=== PATIENT | female | born 2000 | race Hispanic/Latino ===

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

== ENCOUNTER 2022-05-01 08:34 | Emergency (ER) | payer OTHER ==
--- OUTSIDE RECORDS SUMMARY | 2022-05-01 08:39 | XMS REPORT | Continuity of Care Document ---
:[address] [facility] t Address [address] [place] [address] Care Team Providers Name Role Phone Libby Fulton Primary Care Physician Libby Fulton Attending Clinician Unavailable NEAL WARE Attending Clinician Unavailable NEAL WARE Attending Clinician Unavailable BIRD SHELTON Attending Clinician Unavailable Neal Ware MD Attending Clinician STELLA PEPE Attending Clinician Unavailable STELLA PEPE Attending Clinician Unavailable Rafael Rojas MD Attending Clinician Antonino Grubbs MD Attending Clinician RAFAEL ROJAS Attending Clinician Unavailable Doctor Unassigned, Dennard Attending Clinician Unavailable ALISON KEMP Attending Clinician Unavailable Clemente CENTENO, Alison Bey Attending Clinician JM MCGEE Attending Clinician Unavailable Garrett Sidhu Attending Clinician [phone] CAT DODD Attending Clinician Unavailable Pcp-Lab Attending Clinician Unavailable Bebe Gr MD Attending Clinician Greg CENTENO, Real Attending Clinician South Ho MD Attending Clinician Nuha Gil RN Attending Clinician Unavailable Monica JONES, Luann Hare Attending Clinician CODIE WALDROP Attending Clinician Unavailable Zhao WADSWORTH, Reji Flanagan Attending Clinician Codie Waldrop MD Attending Clinician Anesthesiology Attending Clinician Unavailable Nicola CENTENO, Ki Attending Clinician [phone] Rui Colon MD, Briana Attending Clinician [phone] Anton JONES, Liza Myers Attending Clinician Unavailable Greg CENTENO, Real Admitting Clinician CODIE WALDROP Admitting Clinician Unavailable Codie Waldrop MD Admitting Clinician Payers Payer Name Policy Type Policy Number Effective Date Expiration Date Lucia peralta [facility] [id number] 2016 00:00:00 [employer] [id number] 2022 BEHAVIORAL 00:00:00 SOLUTIONS Problems Condition Condition Condition Status Onset Resolution Last Treating Co mments Source Name Details Category Date Date Treatment Clinician Date Agitation Agitation Disease Active Uni vers 4-30 ity of 00:00: [address] Seizures Seizures Disease Active Unive rs 5-03 ity of 00:00: [address] Autistic Autistic Disease Active 2012-03 Unive rs spectrum spectrum 1-02 ity of disorder disorder 00:00: [address] Urinary Urinary Problem Active Common incontinen incontinen Sp estrella ce ce - [facility] Other Other Problem Active Common specified specified Spir it bacterial bacterial - CH I agents as agents as St the cause the cause [facility] Medical diseases diseases Center classified classified elsewhere elsewhere Acute Acute Problem Active Common sinusitis, sinusitis, Sp estrella unspecifie unspecifie - [facility]I d d [facility] Foreign Foreign Problem Active Common body in body in Spirit stomach, stomach, - [facility] subsequent subsequent [facility] encounter encounter [facility] Change in Change in Problem Active Com mon bowel bowel Spirit movement movement - [facility] Depression Depression Problem Active C ommon , , Spirit unspecifie unspecifie - [facility]I d d [facility] depression depression Moira kes type type [facility] Menstrual Menstrual Problem Active Com mon abnormalit abnormalit Sp estrella y y - [facility] Combative Combative Diagnosis Active C ommon behavior behavior [facility] Hypersomni Hypersomni Problem Active C ommon a a [facility] Pica Pica Problem Active Common [facility] Autism Autism Diagnosis Active Common [facility] GERD GERD Problem Active Common (gastroeso (gastroeso Sp estrella phageal phageal - [facility] reflux reflux St disease) disease) [facility] Lactose Lactose Problem Active Common intoleranc intoleranc Sp estrella e e [facility] Allergic Allergic Problem Active Commo n rhinitis, rhinitis, Spir it seasonal seasonal - [facility] Diarrhea, Diarrhea, Problem Active Com mon unspecifie unspecifie Sp estrella d type d type - [facility] Counseling Counseling Diagnosis Active Common and and Spirit coordinati coordinati - [facility] on of care on of care [facility] Seizure Seizure Diagnosis Active Commo n [facility] Depo-Prove Depo-Prove Problem Active C ommon ra ra Spirit contracept contracept - [facility] marcel status marcel status [facility] Follow-up Follow-up Diagnosis Active C ommon exam exam [facility] Allergies, Adverse Reactions, Alerts Allergy Allergy Status Severity Reaction(s) Onset Inactive Treating Comm ents Source Name Type Date Date Clinician NO KNOWN Drug Active Univers ALLERGIE Class ity of S [facility] Social History Social Habit Start Date Stop Date Quantity Comments Source Exposure to 2022-04-14 2022-04-24 Not sure [facility] SARS-CoV-2 00:00:00 08:02:00 [facility] (event) Branch Alcohol intake 2022-04-24 2022-04-24 [facility] 00:00:00 00:00:00 [facility] Tobacco use and 2012-11-22 2012-11-22 Smokeless tobacco Un iversity of exposure 00:00:00 00:00:00 non-user [facility] Sex Assigned At [birth year] Universit y of 00:00:00 00:00:00 [facility] Smoking Status Start Date Stop Date Source Never smoked tobacco [facility] Medications Ordered Filled Start Stop Current Ordering Indication Dosage Frequency Signature Comments Components Source Medication Medication Date Date Medication? Clinician (SIG) Name Name OLANZapine 3-0 Yes [id number] 5mg Take 0.5 Univers 10 mg 2-21 tablets by ity of tablet 00:00: mouth [place] 00 every Medical morning Branch and evening. OLANZapine 2023-0 Yes [id number] 5mg Take 1 U nivers (ZYPREXA) 5 2-20 tablet by ity of mg tablet 00:[place]: [place] the Medical morning Branch and 1 tablet in the evening. OLANZapine 2023-0 Yes [id number] 5mg Take 1 U nivers (ZYPREXA) 5 2-20 tablet by ity of mg tablet 00:00: [place] the Medical morning Branch and 1 tablet in the evening. OLANZapine 2023-0 Yes [id number] 5mg Take 1 U nivers (ZYPREXA) 5 2-20 tablet by ity of mg tablet 00:00: [place] the Medical morning Branch and 1 tablet in the evening. OLANZapine 3-0 2023- No [id number] 5mg Take 1 Univers (ZYPREXA) 5 2-20 02-21 tablet by it y of mg tablet 00:00: 00:00 mouth in [place] :00 the Medical morning Branch and 1 tablet in the evening. CLONAZEPAM 2023-0 Yes [id number] .5mg TAKE 1 U nivers 0.5 mg 2-17 TABLET BY ity of tablet 00:00: MOUTH IN 00 THE Medical MORNING Branch AND 1 TABLET AT NOON AND 1 TABLET IN THE EVENING. CLONAZEPAM 2023-0 Yes [id number] .5mg TAKE 1 U nivers 0.5 mg 2-17 TABLET BY ity of tablet 00:00: MOUTH IN 00 THE Medical MORNING Branch AND 1 TABLET AT NOON AND 1 TABLET IN THE EVENING. CLONAZEPAM 2023-0 Yes [id number] .5mg TAKE 1 U nivers 0.5 mg 2-17 TABLET BY ity of tablet 00:00: MOUTH IN [place] 00 THE Medical MORNING Branch AND 1 TABLET AT NOON AND 1 TABLET IN THE EVENING. CLONAZEPAM 2023-0 Yes [id number] .5mg TAKE 1 U nivers 0.5 mg 2-17 TABLET BY ity of tablet 00:00: MOUTH IN [place] 00 THE Medical MORNING Branch AND 1 TABLET AT NOON AND 1 TABLET IN THE EVENING. CLONAZEPAM 2023-0 Yes [id number] .5mg TAKE 1 U nivers 0.5 mg 2-17 TABLET BY ity of tablet 00:00: MOUTH IN [place] 00 THE Medical MORNING Branch AND 1 TABLET AT NOON AND 1 TABLET IN THE EVENING. OXcarbazepi 2023-0 Yes [id number] 600mg Take 1 Univers ne 600 mg 2-15 tablet by ity o f tablet 00:00: mouth in [place] 00 the Medical morning Branch and 1 tablet in the evening. OXcarbazepi 2023-0 Yes [id number] 600mg Take 1 Univers ne 600 mg 2-15 tablet by ity o f tablet 00:00: mouth in [place] 00 the Medical morning Branch and 1 tablet in the evening. OXcarbazepi 2023-0 Yes [id number] 600mg Take 1 Univers ne 600 mg 2-15 tablet by ity o f tablet 00:00: mouth in [place] [address] the Medical morning Branch and 1 tablet in the evening. OXcarbazepi 2023-0 Yes [id number] 600mg Take 1 Univers ne 600 mg 2-15 tablet by ity o f tablet 00:00: mouth in [place] [address] the Medical morning Branch and 1 tablet in the evening. OXcarbazepi 2023-0 Yes [id number] 600mg Take 1 Univers ne 600 mg 2-15 tablet by ity o f tablet 00:00: mouth in [place] [address] the Medical morning Branch and 1 tablet in the evening. risperiDONE 2023-0 Yes [id number] 1mg Take 0.5 Univers 2 mg tablet 1-18 tablets by it y of 00:00: mouth in [place] [address] the Medical morning Branch and 0.5 tablets in the evening. risperiDONE 2023-0 Yes [id number] 1mg Take 0.5 Univers 2 mg tablet 1-18 tablets by it y of 00:00: mouth in [place] [address] the Medical morning Branch and 0.5 tablets in the evening. risperiDONE 2023-0 Yes [id number] 1mg Take 0.5 Univers 2 mg tablet 1-18 tablets by it y of 00:00: mouth in [place] [address] the Medical morning Branch and 0.5 tablets in the evening. risperiDONE 2023-0 Yes [id number] 1mg Take 0.5 Univers 2 mg tablet 1-18 tablets by it y of 00:00: mouth in [place] [address] the Medical morning Branch and 0.5 tablets in the evening. risperiDONE 2023-0 Yes [id number] 1mg Take 0.5 Univers 2 mg tablet 1-18 tablets by it y of 00:00: mouth in [place] 00 the Medical morning Branch and 0.5 tablets in the evening. risperiDONE 2022-0 Yes [id number] 1mg Take 0.5 Univers 2 mg tablet 1-18 tablets by it y of 00:00: mouth in [place] 00 the Medical morning Branch and 0.5 tablets in the evening. risperiDONE 2022-0 3- No [id number] 1mg Take 0.5 Univers 2 mg tablet 1-18 02-20 tablets by i ty of 00:00: 00:00 mouth in [place] 00 :00 the Medical morning Branch and 0.5 tablets in the evening. risperiDONE 2022-0 3- No [id number] 1mg Take 0.5 Univers 2 mg tablet 1-18 02-20 tablets by i ty of 00:00: 00:00 mouth in [place] 00 :00 the Medical morning Branch and 0.5 tablets in the evening. risperiDONE 2022-0 3- No [id number] 1mg Take 0.5 Univers 2 mg tablet 1-18 02-20 tablets by i ty of 00:00: 00:00 mouth in [place] 00 :00 the Medical morning Branch and 0.5 tablets in the evening. risperiDONE 2022-0 2022- No [id number] 1mg Take 0.5 Univers 2 mg tablet 1-18 02-20 tablets by i ty of 00:00: 00:00 mouth in [place] 00 :00 the Medical morning Branch and 0.5 tablets in the evening. CETIRIZINE 2021-03 Yes Take by Uni vers HCL (ZYRTEC 2-15 mouth. ity of ORAL) 08:11: [address] CETIRIZINE 2021-03 Yes Take by Univ ers HCL (ZYRTEC 2-15 mouth. ity of ORAL) 08:: [address] CETIRIZINE 2021-03 Yes Take by Univ ers HCL (ZYRTEC 2-15 mouth. ity of ORAL) 08:: [address] CETIRIZINE 2021-03 Yes Take by Univ ers HCL (ZYRTEC 2-15 mouth. ity of ORAL) 08:11: [address] CETIRIZINE 2021-03 Yes Take by Univ ers HCL (ZYRTEC 2-15 mouth. ity of ORAL) 08:11: [address] CETIRIZINE 2021-03 Yes Take by Univ ers HCL (ZYRTEC 2-15 mouth. ity of ORAL) 08:11: [address] CETIRIZINE 2021-03 Yes Take by Univ ers HCL (ZYRTEC 2-15 mouth. ity of ORAL) 08:11: [address] CETIRIZINE 2021-03 Yes Take by Univ ers HCL (ZYRTEC 2-15 mouth. ity of ORAL) 08:11: [address] CETIRIZINE 2021-03 Yes Take by Univ ers HCL (ZYRTEC 2-15 mouth. ity of ORAL) 08:11: [address] CETIRIZINE 2021-03 Yes Take by Univ ers HCL (ZYRTEC 2-15 mouth. ity of ORAL) 08:11: [address] CETIRIZINE 2021-03 Yes Take by Univ ers HCL (ZYRTEC 2-15 mouth. ity of ORAL) 08:11: [address] CETIRIZINE 2021-03 Yes Take by Univ ers HCL (ZYRTEC 2-15 mouth. ity of ORAL) 08:11: [address] CETIRIZINE 2021-03 Yes Take by Univ ers HCL (ZYRTEC 2-15 mouth. ity of ORAL) 08:11: [address] CETIRIZINE 2021-03 Yes Take by Univ ers HCL (ZYRTEC 2-15 mouth. ity of ORAL) 08:11: [address] CETIRIZINE 2021-03 Yes Take by Univ ers HCL (ZYRTEC 2-15 mouth. ity of ORAL) 08:11: [address] CETIRIZINE 2021-03 Yes Take by Univ ers HCL (ZYRTEC 2-15 mouth. ity of ORAL) 08:11: [address] risperiDONE 2021-03 Yes [id number] 2mg Take 1 Univers 2 mg tablet 1-17 tablet by ity of 00:00: mouth in [place] [address] the Medical morning Branch and 1 tablet in the evening. ARIPiprazol 2021-03 Yes [id number] 5mg Take 1 Univers e 5 mg 1-17 tablet by ity of tablet 00:00: mouth [place] 00 every Medical morning. Branch risperiDONE 2021-03 Yes [id number] 2mg Take 1 Univers 2 mg tablet 1-17 tablet by ity of 00:00: mouth in [place] 00 the Medical morning Branch and 1 tablet in the evening. ARIPiprazol 2021-03 Yes [id number] 5mg Take 1 Univers e 5 mg 1-17 tablet by ity of tablet 00:00: mouth [place] 00 every Medical morning. Branch risperiDONE 2021-03 Yes [id number] 2mg Take 1 Univers 2 mg tablet 1-17 tablet by ity of 00:00: mouth in [place] 00 the Medical morning Branch and 1 tablet in the evening. ARIPiprazol 2021-03 Yes [id number] 5mg Take 1 Univers e 5 mg 1-17 tablet by ity of tablet 00:00: mouth [place] 00 every Medical morning. Branch risperiDONE 2021-03 Yes [id number] 2mg Take 1 Univers 2 mg tablet 1-17 tablet by ity of 00:00: mouth in [place] 00 the Medical morning Branch and 1 tablet in the evening. ARIPiprazol 2021-03 Yes [id number] 5mg Take 1 Univers e 5 mg 1-17 tablet by ity of tablet 00:00: mouth [place] 00 every Medical morning. Branch risperiDONE 2021-03 Yes [id number] 2mg Take 1 Univers 2 mg tablet 1-17 tablet by ity of 00:00: mouth in [place] 00 the Medical morning Branch and 1 tablet in the evening. ARIPiprazol 2021-03 Yes [id number] 5mg Take 1 Univers e 5 mg 1-17 tablet by ity of tablet 00:00: mouth [place] 00 every Medical morning. Branch risperiDONE 2021-03 Yes [id number] 2mg Take 1 Univers 2 mg tablet 1-17 tablet by ity of 00:00: mouth in [place] 00 the Medical morning Branch and 1 tablet in the evening. ARIPiprazol 2021-03 Yes [id number] 5mg Take 1 Univers e 5 mg 1-17 tablet by ity of tablet 00:00: mouth [place] 00 every Medical morning. Branch risperiDONE 2021-03 Yes [id number] 2mg Take 1 Univers 2 mg tablet 1-17 tablet by ity of 00:00: mouth in [place] 00 the Medical morning Branch and 1 tablet in the evening. ARIPiprazol 2021-03 Yes [id number] 5mg Take 1 Univers e 5 mg 1-17 tablet by ity of tablet 00:00: mouth [place] 00 every Medical morning. [place] ARIPiprazol 2021-03 Yes [id number] 5mg Take 1 Univers e 5 mg 1-17 tablet by ity of tablet 00:00: mouth [place] 00 every Medical morning. [place] ARIPiprazol 2021-03 Yes [id number] 5mg Take 1 Univers e 5 mg 1-17 tablet by ity of tablet 00:00: mouth [place] 00 every Medical morning. [place] ARIPiprazol 2021-03 Yes [id number] 5mg Take 1 Univers e 5 mg 1-17 tablet by ity of tablet 00:00: mouth [place] 00 every Medical morning. [place] ARIPiprazol 2021-03 Yes [id number] 5mg Take 1 Univers e 5 mg 1-17 tablet by ity of tablet 00:00: mouth [place] 00 every Medical morning. [place] ARIPiprazol 2021-03 Yes [id number] 5mg Take 1 Univers e 5 mg 1-17 tablet by ity of tablet 00:00: mouth [place] 00 every Medical morning. [place] ARIPiprazol 2021-03 Yes [id number] 5mg Take 1 Univers e 5 mg 1-17 tablet by ity of tablet 00:00: mouth [place] 00 every Medical morning. [place] ARIPiprazol 2021-03 Yes [id number] 5mg Take 1 Univers e 5 mg 1-17 tablet by ity of tablet 00:00: mouth [place] 00 every Medical morning. [place] ARIPiprazol 2021-03 Yes [id number] 5mg Take 1 Univers e 5 mg 1-17 tablet by ity of tablet 00:00: mouth [place] 00 every Medical morning. [place] ARIPiprazol 2021-03 Yes [id number] 5mg Take 1 Univers e 5 mg 1-17 tablet by ity of tablet 00:00: mouth [place] 00 every Medical morning. [place] ARIPiprazol 2021-03 Yes [id number] 5mg Take 1 Univers e 5 mg 1-17 tablet by ity of tablet 00:00: mouth [place] 00 every Medical morning. Fisher risperiDONE 2021-03- No [id number] 2mg Take 1 Univers 2 mg tablet 1-17 01-18 tablet by it y of 00:00: 00:00 mouth in [place] 00 :00 the Medical morning Branch and 1 tablet in the evening. MONTELUKAST 2022-0 2022- No Take by Un luis SODIUM 7-18 07-18 mouth. ity of (SINGULAIR 08:33: 00:00 [place] ORAL) 08 :00 Medical Branch OXcarbazepi 2022-0 Yes [id number] 600mg Take 1 Univers ne 600 mg 7-18 tablet by ity o f tablet 00:00: mouth in [place] 00 the Medical morning Branch and 1 tablet in the evening. clonazePAM 2022-0 Yes [id number] .5mg Take 1 U nivers 0.5 mg 7-18 tablet by ity of tablet 00:00: mouth in [place] 00 the Medical morning Branch and 1 tablet at noon and 1 tablet in the evening. OXcarbazepi 2022-0 Yes [id number] 600mg Take 1 Univers ne 600 mg 7-18 tablet by ity o f tablet 00:00: mouth in [place] 00 the Medical morning Branch and 1 tablet in the evening. clonazePAM 2022-0 Yes [id number] .5mg Take 1 U nivers 0.5 mg 7-18 tablet by ity of tablet 00:00: mouth in [place] [address] the Medical morning Branch and 1 tablet at noon and 1 tablet in the evening. OXcarbazepi 2022-0 Yes [id number] 600mg Take 1 Univers ne 600 mg 7-18 tablet by ity o f tablet 00:00: mouth in [place] [address] the Medical morning Branch and 1 tablet in the evening. clonazePAM 2022-0 Yes [id number] .5mg Take 1 U nivers 0.5 mg 7-18 tablet by ity of tablet 00:00: mouth in [place] [address] the Medical morning Branch and 1 tablet at noon and 1 tablet in the evening. OXcarbazepi 2022-0 Yes [id number] 600mg Take 1 Univers ne 600 mg 7-18 tablet by ity o f tablet 00:00: mouth in [place] 00 the Medical morning Branch and 1 tablet in the evening. clonazePAM 2022-0 Yes [id number] .5mg Take 1 U nivers 0.5 mg 7-18 tablet by ity of tablet 00:00: mouth in [place] [address] the Medical morning Branch and 1 tablet at noon and 1 tablet in the evening. OXcarbazepi 2022-0 Yes [id number] 600mg Take 1 Univers ne 600 mg 7-18 tablet by ity o f tablet 00:00: mouth in [place] [address] the Medical morning Branch and 1 tablet in the evening. clonazePAM 2022-0 Yes [id number] .5mg Take 1 U nivers 0.5 mg 7-18 tablet by ity of tablet 00:00: mouth in [place] 00 the Medical morning Branch and 1 tablet at noon and 1 tablet in the evening. OXcarbazepi 2022-0 Yes [id number] 600mg Take 1 Univers ne 600 mg 7-18 tablet by ity o f tablet 00:00: mouth in [place] [address] the Medical morning Branch and 1 tablet in the evening. clonazePAM 2022-0 Yes [id number] .5mg Take 1 U nivers 0.5 mg 7-18 tablet by ity of tablet 00:00: mouth in [place] [address] the Medical morning Branch and 1 tablet at noon and 1 tablet in the evening. OXcarbazepi 2022-0 Yes [id number] 600mg Take 1 Univers ne 600 mg 7-18 tablet by ity o f tablet 00:00: mouth in [place] [address] the [facility] morning Branch and 1 tablet in the evening. clonazePAM 2022-0 Yes [id number] .5mg Take 1 U nivers 0.5 mg 7-18 tablet by ity of tablet 00:00: mouth in [place] [address] the Medical morning Fisher and 1 tablet at noon and 1 tablet in the evening. OXcarbazepi 2022-0 Yes [id number] 600mg Take 1 Univers ne 600 mg 7-18 tablet by ity o f tablet 00:00: mouth in [place] [address] the Medical morning Branch and 1 tablet in the evening. clonazePAM 2022-0 Yes [id number] .5mg Take 1 U nivers 0.5 mg 7-18 tablet by ity of tablet 00:00: mouth in [place] [address] the Medical morning Branch and 1 tablet at noon and 1 tablet in the evening. OXcarbazepi 2022-0 Yes [id number] 600mg Take 1 Univers ne 600 mg 7-18 tablet by ity o f tablet 00:00: mouth in [place] [address] the [facility] morning Fisher and 1 tablet in the evening. clonazePAM 2022-0 Yes [id number] .5mg Take 1 U nivers 0.5 mg 7-18 tablet by ity of tablet 00:00: mouth in [place] [address] the Medical morning Fisher and 1 tablet at noon and 1 tablet in the evening. OXcarbazepi 2022-0 Yes [id number] 600mg Take 1 Univers ne 600 mg 7-18 tablet by ity o f tablet 00:00: mouth in [place] 00 the Medical morning Branch and 1 tablet in the evening. clonazePAM 2022-0 Yes [id number] .5mg Take 1 U nivers 0.5 mg 7-18 tablet by ity of tablet 00:00: mouth in [place] 00 the Medical morning Branch and 1 tablet at noon and 1 tablet in the evening. OXcarbazepi 2022-0 Yes [id number] 600mg Take 1 Univers ne 600 mg 7-18 tablet by ity o f tablet 00:00: mouth in [place] 00 the Medical morning Branch and 1 tablet in the evening. clonazePAM 2022-0 Yes [id number] .5mg Take 1 U nivers 0.5 mg 7-18 tablet by ity of tablet 00:00: mouth in [place] [address] the Medical morning Branch and 1 tablet at noon and 1 tablet in the evening. OXcarbazepi 2022-0 Yes [id number] 600mg Take 1 Univers ne 600 mg 7-18 tablet by ity o f tablet 00:00: mouth in [place] 00 the Medical morning Branch and 1 tablet in the evening. clonazePAM 2022-0 Yes [id number] .5mg Take 1 U nivers 0.5 mg 7-18 tablet by ity of tablet 00:00: mouth in [place] 00 the Medical morning Fisher and 1 tablet at noon and 1 tablet in the evening. OXcarbazepi 2022-0 Yes [id number] 600mg Take 1 Univers ne 600 mg 7-18 tablet by ity o f tablet 00:00: mouth in [place] 00 the Medical morning Branch and 1 tablet in the evening. clonazePAM 2022-0 Yes [id number] .5mg Take 1 U nivers 0.5 mg 7-18 tablet by ity of tablet 00:00: mouth in [place] 00 the Medical morning Branch and 1 tablet at noon and 1 tablet in the evening. clonazePAM 2022-0 2023- No [id number] .5mg Take 1 Univers 0.5 mg 7-18 02-17 tablet by ity of tablet 00:00: 00:00 mouth in [place] 00 :00 the Medical morning Branch and 1 tablet at noon and 1 tablet in the evening. clonazePAM 2022-0 2023- No [id number] .5mg Take 1 Univers 0.5 mg 7-18 02-17 tablet by ity of tablet 00:00: 00:00 mouth in [place] 00 :00 the Medical morning Branch and 1 tablet at noon and 1 tablet in the evening. clonazePAM 2022-0 3- No [id number] .5mg Take 1 Univers 0.5 mg 7-18 02-17 tablet by ity of tablet 00:00: 00:00 mouth in [place] 00 :00 the Medical morning Branch and 1 tablet at noon and 1 tablet in the evening. clonazePAM 2022-0 3- No [id number] .5mg Take 1 Univers 0.5 mg 7-18 02-17 tablet by ity of tablet 00:00: 00:00 mouth in [place] 00 :00 the Medical morning Branch and 1 tablet at noon and 1 tablet in the evening. clonazePAM 2-0 3- No [id number] .5mg Take 1 Univers 0.5 mg 7-18 02-17 tablet by ity of tablet 00:00: 00:00 mouth in [place] 00 :00 the [facility] morning Branch and 1 tablet at noon and 1 tablet in the evening. clonazePAM 2021-0 3- No [id number] .5mg Take 1 Univers 0.5 mg 7-18 02-17 tablet by ity of tablet 00:00: 00:00 mouth in [place] 00 :00 the [facility] morning Branch and 1 tablet at noon and 1 tablet in the evening. clonazePAM 2-0 3- No [id number] .5mg Take 1 Univers 0.5 mg 7-18 02-17 tablet by ity of tablet 00:00: 00:00 mouth in [place] 00 :00 the [facility] morning Fisher and 1 tablet at noon and 1 tablet in the evening. clonazePAM 2-0 3- No [id number] .5mg Take 1 Univers 0.5 mg 7-18 02-17 tablet by ity of tablet 00:00: 00:00 mouth in [place] 00 :00 the Medical morning Branch and 1 tablet at noon and 1 tablet in the evening. OXcarbazepi 2022-0 3- No [id number] 600mg Take 1 Univers ne 600 mg 7-18 02-15 tablet by ity of tablet 00:00: 00:00 mouth in [place] 00 :00 the [facility] morning Branch and 1 tablet in the evening. OXcarbazepi 2022-2022- No [id number] 600mg Take 1 Univers ne 600 mg 7-18 02-15 tablet by ity of tablet 00:00: 00:00 mouth in [place] 00 :00 the Medical morning Branch and 1 tablet in the evening. OXcarbazepi 2021-2022- No [id number] 600mg Take 1 Univers ne 600 mg 7-18 02-15 tablet by ity of tablet 00:00: 00:00 mouth in [place] 00 :00 the Medical morning Branch and 1 tablet in the evening. OXcarbazepi 2022- No [id number] 600mg Take 1 Univers ne 600 mg 7-18 02-15 tablet by ity of tablet 00:00: 00:00 mouth in [place] 00 :00 the Medical morning Branch and 1 tablet in the evening. OXcarbazepi 2022- No [id number] 600mg Take 1 Univers ne 600 mg 7-18 -15 tablet by ity of tablet 00:00: 00:00 mouth in [place] 00 :00 the Medical morning Branch and 1 tablet in the evening. OXcarbazepi 2022- No [id number] 600mg Take 1 Univers ne 600 mg 7-18 -15 tablet by ity of tablet 00:00: 00:00 mouth in [place] 00 :00 the Medical morning Branch and 1 tablet in the evening. OXcarbazepi 2022- No [id number] 600mg Take 1 Univers ne 600 mg 7-18 02-15 tablet by ity of tablet 00:00: 00:00 mouth in [place] 00 :00 the Medical morning Branch and 1 tablet in the evening. clindamycin 2021-0 Yes TAKE 1 Univ ers 300 mg 6-14 CAPSULE BY ity of capsule 00:00: [place]TH [place] s 00 TIMES A Medical DAY Branch ibuprofen 2021-0 Yes TAKE 1 Univer s 800 mg 6-14 TABLET BY ity of tablet 00:00: MOUTH [place] [id number] THREE Medical TIMES A Branch DAY NEEDED FOR PAIN clindamycin 2021-0 Yes TAKE 1 Univ ers 300 mg 6-14 CAPSULE BY ity of capsule 00:00: [place]TH [place] 00 TIMES A Medical DAY Branch ibuprofen 2021-0 Yes TAKE 1 Univer s 800 mg 6-14 TABLET BY ity of tablet 00:00: MOUTH [place] 00 THREE Medical TIMES A Branch DAY NEEDED FOR PAIN clindamycin 2022-0 Yes TAKE 1 Univ ers 300 mg 6-14 CAPSULE BY ity of capsule 00:00: MOUTH [place] 00 TIMES A Medical DAY Branch ibuprofen 2022-0 Yes TAKE 1 Univer s 800 mg 6-14 TABLET BY ity of tablet 00:00: MOUTH [place] 00 THREE Medical TIMES A Branch DAY NEEDED FOR PAIN clindamycin 2022-0 Yes TAKE 1 Univ ers 300 mg 6-14 CAPSULE BY ity of capsule 00:00: MOUTH FOUR [place] 00 TIMES A Medical DAY Branch ibuprofen 2022-0 Yes TAKE 1 Univer s 800 mg 6-14 TABLET BY ity of tablet 00:00: MOUTH [place] 00 THREE Medical TIMES A Branch DAY NEEDED FOR PAIN clindamycin 2022-0 Yes TAKE 1 Univ ers 300 mg 6-14 CAPSULE BY ity of capsule 00:00: MOUTH FOUR [place] 00 TIMES A Medical DAY Branch ibuprofen 2022-0 Yes TAKE 1 Univer s 800 mg 6-14 TABLET BY ity of tablet 00:00: MOUTH [place] 00 THREE Medical TIMES A Branch DAY NEEDED FOR PAIN clindamycin 2022-0 Yes TAKE 1 Univ ers 300 mg 6-14 CAPSULE BY ity of capsule 00:00: MOUTH FOUR [place] 00 TIMES A Medical DAY Branch ibuprofen 2022-0 Yes TAKE 1 Univer s 800 mg 6-14 TABLET BY ity of tablet 00:00: MOUTH [place] 00 THREE Medical TIMES A Branch DAY NEEDED FOR PAIN clindamycin 2022-0 Yes TAKE 1 Univ ers 300 mg 6-14 CAPSULE BY ity of capsule 00:00: MOUTH FOUR [place] 00 TIMES A Medical DAY Branch ibuprofen 2022-0 Yes TAKE 1 Univer s 800 mg 6-14 TABLET BY ity of tablet 00:00: MOUTH [place] 00 THREE Medical TIMES A Branch DAY NEEDED FOR PAIN clindamycin 2022-0 Yes TAKE 1 Univ ers 300 mg 6-14 CAPSULE BY ity of capsule 00:00: MOUTH FOUR [place] 00 TIMES A Medical DAY Branch ibuprofen 2022-0 Yes TAKE 1 Univer s 800 mg 6-14 TABLET BY ity of tablet 00:00: MOUTH [place] 00 THREE Medical TIMES A Branch DAY NEEDED FOR PAIN clindamycin 2022-0 Yes TAKE 1 Univ ers 300 mg 6-14 CAPSULE BY ity of capsule 00:00: MOUTH FOUR [place] 00 TIMES A Medical DAY Branch ibuprofen 2022-0 Yes TAKE 1 Univer s 800 mg 6-14 TABLET BY ity of tablet 00:00: MOUTH [place] 00 THREE Medical TIMES A Branch DAY NEEDED FOR PAIN clindamycin 2022-0 Yes TAKE 1 Univ ers 300 mg 6-14 CAPSULE BY ity of capsule 00:00: MOUTH FOUR [place] 00 TIMES A Medical DAY Branch ibuprofen 2022-0 Yes TAKE 1 Univer s 800 mg 6-14 TABLET BY ity of tablet 00:00: MOUTH [place] 00 THREE Medical TIMES A Branch DAY NEEDED FOR PAIN clindamycin 2022-0 Yes TAKE 1 Univ ers 300 mg 6-14 CAPSULE BY ity of capsule 00:00: MOUTH FOUR [place] 00 TIMES A Medical DAY Branch ibuprofen 2022-0 Yes TAKE 1 Univer s 800 mg 6-14 TABLET BY ity of tablet 00:00: MOUTH THREE Medical TIMES A Branch DAY NEEDED FOR PAIN clindamycin 2022-0 Yes TAKE 1 Univ ers 300 mg 6-14 CAPSULE BY ity of capsule 00:00: MOUTH FOUR [place] 00 TIMES A Medical DAY Branch ibuprofen 2022-0 Yes TAKE 1 Univer s 800 mg 6-14 TABLET BY ity of tablet 00:00: MOUTH 00 THREE Medical TIMES A Branch DAY NEEDED FOR PAIN clindamycin 2022-0 Yes TAKE 1 Univ ers 300 mg 6-14 CAPSULE BY ity of capsule 00:00: MOUTH FOUR [place] 00 TIMES A Medical DAY Branch ibuprofen 2022-0 Yes TAKE 1 Un[facility] s 800 mg 6-14 TABLET BY ity of tablet 00:00: MOUTH 00 THREE Medical TIMES A Branch DAY NEEDED FOR PAIN clindamycin 2022-0 Yes TAKE 1 Univ ers 300 mg 6-14 CAPSULE BY ity of capsule 00:00: MOUTH FOUR [place] 00 TIMES A Medical DAY Branch ibuprofen 2022-0 Yes TAKE 1 Univer s 800 mg 6-14 TABLET BY ity of tablet 00:00: MOUTH 00 THREE Medical TIMES A Branch DAY NEEDED FOR PAIN clindamycin 2022-0 Yes TAKE 1 Univ ers 300 mg 6-14 CAPSULE BY ity of capsule 00:00: MOUTH FOUR [place] 00 TIMES A Medical DAY Branch ibuprofen 2022-0 Yes TAKE 1 Univer s 800 mg 6-14 TABLET BY ity of tablet 00:00: MOUTH [place] 00 THREE Medical TIMES A Branch DAY NEEDED FOR PAIN clindamycin 2022-0 Yes TAKE 1 Univ ers 300 mg 6-14 CAPSULE BY ity of capsule 00:00: MOUTH FOUR [place] 00 TIMES A Medical DAY Branch ibuprofen 2022-0 Yes TAKE 1 Univer s 800 mg 6-14 TABLET BY ity of tablet 00:00: MOUTH [place] 00 THREE Medical TIMES A Branch DAY NEEDED FOR PAIN clindamycin 2022-0 Yes TAKE 1 Univ ers 300 mg 6-14 CAPSULE BY ity of capsule 00:00: MOUTH FOUR [place] 00 TIMES A Medical DAY Branch ibuprofen 2-0 Yes TAKE 1 Univer s 800 mg 6-14 TABLET BY ity of tablet 00:00: MOUTH 00 THREE Medical TIMES A Branch DAY NEEDED FOR PAIN clindamycin 2022-0 Yes TAKE 1 Univ ers 300 mg 6-14 CAPSULE BY ity of capsule 00:00: MOUTH FOUR [place] 00 TIMES A Medical DAY Branch ibuprofen 2-0 Yes TAKE 1 Univer s 800 mg 6-14 TABLET BY ity of tablet 00:00: MOUTH [place] 00 THREE Medical TIMES A Branch DAY NEEDED FOR PAIN clindamycin 2022-0 Yes TAKE 1 Univ ers 300 mg 6-14 CAPSULE BY ity of capsule 00:00: MOUTH FOUR [place] 00 TIMES A Medical DAY Branch ibuprofen 2022-0 Yes TAKE 1 Univer s 800 mg 6-14 TABLET BY ity of tablet 00:00: MOUTH [place] 00 THREE Medical TIMES A Branch DAY NEEDED FOR PAIN clindamycin 2022-0 Yes TAKE 1 Univ ers 300 mg 6-14 CAPSULE BY ity of capsule 00:00: MOUTH FOUR [place] 00 TIMES A Medical DAY Branch ibuprofen 2022-0 Yes TAKE 1 Univer s 800 mg 6-14 TABLET BY ity of tablet 00:00: MOUTH [place] 00 THREE Medical TIMES A Branch DAY NEEDED FOR PAIN clindamycin 2022-0 Yes TAKE 1 Univ ers 300 mg 6-14 CAPSULE BY ity of capsule 00:00: MOUTH FOUR [place] 00 TIMES A Medical DAY Branch ibuprofen 2022-0 Yes TAKE 1 Univer s 800 mg 6-14 TABLET BY ity of tablet 00:00: MOUTH [place] 00 THREE Medical TIMES A Branch DAY NEEDED FOR PAIN OXCARBAZEPI 2-0 2022- No [id number] TAKE 1 Univers [place] 600 mg 5-23 07-18 TABLET BY ity of tablet 00:00: 00:00 MOUTH [place] 00 :00 TWICE A Medical DAY Branch clonazePAM 2021-2021- No [id number] .5mg Take 1 Univers 0.5 mg 07-14-18 tablet by ity of tablet 00:00: 00:00 mouth 3 [place] 00 :00 (three) Medical times Branch daily. ARIPiprazol Yes [id number] 5mg Take 1 Univers e 5 mg 3-16 tablet by ity of tablet 00:00: mouth [place] 00 every Medical morning. Branch risperiDONE Yes [id number] 2mg Take 1 Univers 2 mg tablet 3-16 tablet by ity of 00:00: mouth 2 [place] 00 (two) Medical times Branch daily. ARIPiprazol Yes [id number] 5mg Take 1 Univers e 5 mg 3-16 tablet by ity of tablet 00:00: mouth [place] 00 every Medical morning. Branch risperiDONE Yes [id number] 2mg Take 1 Univers 2 mg tablet 3-16 tablet by ity of 00:00: mouth 2 [place] 00 (two) Medical times Branch daily. ARIPiprazol Yes [id number] 5mg Take 1 Univers e 5 mg 3-16 tablet by ity of tablet 00:00: mouth [place] 00 every Medical morning. Branch risperiDONE Yes [id number] 2mg Take 1 Univers 2 mg tablet 3-16 tablet by ity of 00:00: mouth 2 [place] 00 (two) Medical times Branch daily. ARIPiprazol 2021- No [id number] 5mg Take 1 Univers e 5 mg 3-16 11-17 tablet by ity of tablet 00:00: 00:00 mouth [place] 00 :00 every Medical morning. Branch risperiDONE 2021- No [id number] 2mg Take 1 Univers 2 mg tablet 3-16 11-17 tablet by it y of 00:00: 00:00 mouth 2 [place] 00 :00 (two) Medical times Branch daily. lamoTRIgine 2- No [id number] 25mg Take 1 Univers (LAMICTAL) 2-04 11-18 tablet by ity of 25 mg 00:00: 00:00 mouth [place] tablet 00 :00 daily. Medical Branch CETIRIZINE Yes Take by Univ ers HCL (ZYRTEC 9-08 mouth. ity of ORAL) 03:43: [place] [facility] Branch CETIRIZINE Yes Take by Univ ers HCL (ZYRTEC 9-08 mouth. ity of ORAL) 03:43: [place] [facility] Branch CETIRIZINE Yes Take by Univ ers HCL (ZYRTEC 9-08 mouth. ity of ORAL) 03:43: [place] [facility] Branch CETIRIZINE Yes Take by Univ ers HCL (ZYRTEC 9-08 mouth. ity of ORAL) 03:43: [place] [facility] Branch CETIRIZINE Yes Take by Univ ers HCL (ZYRTEC 9-08 mouth. ity of ORAL) 03:43: [place] [facility] Branch docusate 2021- No [id number] 100mg Take 1 U nivers 100 mg 07-07 capsule by ity of capsule 00:00: 00:00 mouth as [place] 00 :00 needed for Medical Constipati Branch on. montelukast 2021- No 5mg Take 5 mg Univers 5 mg 09-23 by mouth ity of chewable 00:00: 00:00 daily. [place] tablet 00 :00 Medical Branch famotidine 2021- No 40mg Take 40 mg Univers 40 mg 09-23 by mouth ity of tablet 00:00: 00:00 [place] 00 :[place] promethazin 2021- No TAKE BY Un luis e 6.25 mg/5 6-15 09-19 MOUTH 1 ity of mL solution 00:00: 00:00 TEASPOONFU [place] 00 :00 L EVERY 6 Medical HOURS Branch NEEDED FOR NAUSEA Pepcid Pepcid Yes [place] 5 ml at Common [place] bedtime [facility] Zovirax Zovirax Yes Libby 1 Common [place] applicatio Spir it n to - [facility] affected [facility] Colace Colace Yes Libby 1 capsule Commo n [place] as needed Spiri t - [facility] Cetirizine Cetirizine Yes Libby 1 tablet Common HCl HCl Mill[place] [facility] - [facility] Fluoxetine Fluoxetine Yes Libby 1 tablet Common HCl HCl Mill[place] in the Spirit morning [facility] Bactroban Bactroban Yes Libby 1 Comm on Millender applicatio Spir it n to - [facility] affected [facility] Fluconazole Fluconazole Yes Libby 1 tablet Common Millender [facility] Phenergan Phenergan Yes Libby 0.5 ml as Common [place] needed [facility] ChlorproMAZ ChlorproMAZ Yes Libby 1 tablet Common INE HCl INE HCl Millender Spir [facility] Trazodone Trazodone Yes Libby 1 tablet Common HCl HCl Millender at bedtime Spir [facility] Prozac Prozac Yes Libby 1 capsule Commo n Mill[place] in the [facility] morning [facility] Singulair Singulair Yes Libby CHEW 2 Co mmon Mill[place] TABLET [facility] EVERY - [facility] EVENING [facility] Pantoprazol Pantoprazol Yes Libby 1 tablet Common e Sodium e Sodium Millender Sp estrella [facility] Acyclovir Acyclovir Yes Libby 1 tablet Common Millender [facility] Risperidone Risperidone Yes Libby 1 tablet Common Millender [facility] Oxcarbazepi Oxcarbazepi Yes Libby 1 tablet Common ne ne Millender [facility] Abilify Abilify Yes Libby 1 tablet Comm on Millender [facility] Vital Signs Vital Name Observation Time Observation Value Comments Source Systolic blood 2022-04-14 21:33:00 135 mm[Hg] [facility] Diastolic blood 2022-04-14 21:33:00 89 mm[Hg] [facility] Heart rate 2022-04-14 21:33:00 113 /min [facility] Body height 2021-09-19 13:12:00 152.4 cm [facility] Respiratory rate 2022-04-24 14:19:00 18 /min [facility] height 2022-04-24 14:19:00 152.4 cm [facility] Systolic blood 2022-04-14 21:33:00 135 mm[Hg] [facility] Diastolic blood 2022-04-14 21:33:00 89 mm[Hg] Unive rsity of pressure [facility] Heart rate 2022-04-14 21:33:00 113 /min [facility] Body height 2021-09-19 13:12:00 152.4 cm [facility] Body weight 2020-04-06 21:30:00 71.714 kg [facility] BMI 2020-04-06 21:30:00 30.88 kg/m2 [facility] Systolic blood 2019-11-11 08:10:00 118 mm[Hg] Univer sity of pressure [facility] Diastolic blood 2019-11-11 08:10:00 60 mm[Hg] Unive rsity of [facility] Heart rate 2019-11-11 08:10:00 90 /min [facility] Respiratory rate 2019-11-11 08:10:00 19 /min [facility] Oxygen saturation in 2019-11-11 08:10:00 99 /min [facility] Arterial blood by [facility] Pulse oximetry Branch Body temperature 2019-11-11 06:42:02 36.22 Ryann [facility] Procedures Procedure Date / Time Performing Clinician Source Performed MEDICATION CORRESPONDENCE 2022-01-18 06:01:00 Doctor Nazaninigned, [facility] [place] [facility] MEDICATION CORRESPONDENCE 2022-01-13 06:01:00 Doctor Cherylssigned, [facility] [place] [facility] MEDICATION CORRESPONDENCE 2022-01-13 06:01:00 Doctor Nazaninigned, [facility] [place] [facility] MEDICATION CORRESPONDENCE 2021-12-28 05:01:00 Doctor Unassigned, [facility] [place] [facility] MEDICATION CORRESPONDENCE 2021-12-28 05:01:00 Doctor Unassigned, [facility] [place] [facility] REFERRAL- 2021-11-28 05:01:00 Doctor Unassigned, [facility] REQUEST/RESPONSE [place] [facility] REFERRAL- 2021-11-28 05:01:00 Doctor Unassigned, [facility] REQUEST/RESPONSE [place] [facility] Encounters Start End Encounter Admission Attending Care Care Encounter Source Date/Time Date/Time Type Type Clinicians Facility Department ID 2021-03-30 Outpatient SAGAR Fulton [facility] [id number] Common 11:16:37 Libby [id number] [facility] 2021-03-30 Outpatient Donaldo, STGOPAL [facility] [id number] Common 11:16:10 Libby [id number] [facility] 2021-03-30 Outpatient Donaldo, STBORISLC [facility] [id number] Common 11:05:33 Libby [id number] [facility] 2020-12-31 Emergency [facility] [id number] Univers 16:14:21 ity of [facility] 2020-12-31 Emergency [facility] [id number] Univers 00:42:24 ity of [facility] 2022-04-24 2022-04-24 Outpatient R CAT [facility] [id number] Univers 08:00:00 08:39:11 BIRD ity o f [facility] 2022-04-24 2022-04-24 Travel 1.2.840.1 1.2.617.219 [id number] Univers 00:00:00 00:00:00 73356.1.1 350.1.13.10 ity of 3.104.2.7 4.2.7.3.698 [place] .3.600629 084.8 Medica l .8 [place] 2022-04-19 2022-04-19 Telephone Chaz, 1.2.840.7 [id number] Univers 00:00:00 00:00:00 Neal Gene 36403.1.1 ity of 3.104.2.7 [place] .3.279287 Medica l .8 Branch 2022-04-17 2022-04-17 Refill Chaz, 1.2.840.5 [id number] Univers 00:00:00 00:00:00 Neal Gene 34340.1.1 ity of 3.104.2.7 [place] .3.561165 Medica l .8 [place] 2022-04-14 2022-04-14 Outpatient NEAL RANGEL [facility] [id number] Univers 15:40:00 16:38:21 NEAL WARE ity [facility] 2022-04-14 2022-04-14 Office Chaz, 1.2.840.6 [id number] Univers 15:40:00 16:38:21 Visit Neal Gordon 56928.1.1 ity of 3.104.2.7 [place] .3.856692 Medica l .8 [place] 2022-04-14 2022-04-14 Travel 1.2.840.1 1.2.918.093 [id number] Univers 00:00:00 00:00:00 65572.1.1 350.1.13.10 ity of 3.104.2.7 4.[place].7.3.698 [place] .3.538023 084.8 Medica l .8 [place] 2022-03-29 2022-03-29 Telephone Chaz, 1.2.840.7 [id number] Univers 00:00:00 00:00:00 Neal Gordon 75491.1.1 ity of 3.104.2.7 [place] .3.444909 Medica l .8 [place] 2022-03-27 2022-03-27 Outpatient SFA SFA [id number] Jm 10:05:26 10:05:26 [id number] [facility] 2022-03-21 2022-03-21 Outpatient SFA SFA [id number] Jm 16:25:40 16:25:40 0117 [facility] 2022-03-17 2022-03-17 Outpatient SFA SFA [id number] Jm 17:38:19 17:38:19 0113 [facility] 2022-03-08 2022-03-08 Outpatient STELLA LORENZ [facility] [id number] [place] [facility] 16:00:00 16:00:00 STELLA PEPE ity of [facility] 2022-02-16 2022-02-16 Office Rafael Rojas 1.2.840.1 [id number] Univers 08:30:00 09:00:00 Visit GrubbsJacobh 68389.1.1 i ty of 3.104.2.7 [place] .3.042158 Medica l .8 [facility] 2022-02-16 2022-02-16 Outpatient R LIAM ROJASMB [facility] [id number] Univers 08:30:00 08:30:00 RAFAEL ity of [facility] 2022-02-16 2022-02-16 Travel 1.2.840.1 1.2.015.582 [id number] Univers 00:00:00 00:00:00 82379.1.1 350.1.13.10 ity of 3.104.2.7 4.[place].7.3.698 [place] .3.196981 084.8 Medica l .8 [place] 2022-01-13 2022-01-13 Orders Doctor 1.2.840.7 [id number] Univers 00:00:00 00:00:00 Only Unassigned, 18454.1.1 ity of [place] 3.104.2.7 [place] .3.631327 Medica l .8 Fisher 2021-12-28 2021-12-28 Orders Doctor 1.2.840.1 [id number] Univers 00:00:00 00:00:00 Only Unassigned, 88915.1.1 ity of [place] 3.104.2.7 [place] .3.829387 Medica l .8 Fisher 2021-12-07 2021-12-07 Patient Doctor 1.2.840.7 [id number] Univers 00:00:00 00:00:00 Secure Msg Unassigned, 41687.1.1 ity of [place] 3.104.2.7 [place] .3.281773 Medica l .8 [place] 2021-11-28 2021-11-28 Orders Doctor 1.2.840.8 [id number] Univers 00:00:00 00:00:00 Only Unassigned, 06813.1.1 ity of [place] 3.104.2.7 [place] .3.137904 Medica l .8 [place] 2021-09-19 2021-09-19 Outpatient NEAL RANGEL [facility] [id number] Univers 08:00:00 08:39:08 NEAL WARE [facility] 2021-09-19 2021-09-19 Office Chaz [facility] 1.2.840.114 [id number] Univers 08:00:00 08:39:08 Visit [facility] 350.1.13.10 ity of [place] 4.2.7.2.686 Mariano as RISSA?BLEA [phone] [address] OFFICE [facility] 2021-09-19 2021-09-19 Outpatient R CHAZNEAL [facility] [id number] Univers 08:00:00 08:39:08 CHAZNEAL Boyer ity of [facility] 2021-09-19 2021-09-19 Orders Doctor VENTURA 1.2.840.114 [id number] Univers 00:00:00 00:00:00 Only Unassigned, ABDULAZIZ 350.1.13.10 ity of [facility] 4.2.7.2.686 Mariano as [phone] [address] 2021-09-19 2021-09-19 Letter Chaz [facility] 1.2.840.114 [id number] Univers 00:00:00 00:00:00 (Out) [facility] 350.1.13.10 ity of [place] 4.2.7.2.686 Mariano as RISSA?BLEA [phone] [address] OFFICE [facility] 2021-08-30 2021-08-30 Orders Doctor VENTURA 1.2.840.114 [id number] Univers 00:00:00 00:00:00 Only Unassigned, ABDULAZIZ 350.1.13.10 ity of [facility] 4.2.7.2.686 Mariano as [phone] [address] 2021-08-22 2021-08-22 Orders Doctor VENTURA 1.2.840.114 [id number] Univers 00:00:00 00:00:00 Only Unassigned, ABDULAZIZ 350.1.13.10 ity of [facility] 4.2.7.2.686 Mariano as [phone] [address] 2021-08-03 2021-08-03 Orders Doctor VENTURA 1.2.840.114 [id number] Univers 00:00:00 00:00:00 Only Unassigned, ABDULAZIZ 350.1.13.10 ity of [facility] 4.2.7.2.686 Mariano as [id number] [address] 2021-08-02 2021-08-02 Outpatient R CLEMENTE, [facility] [id number] Univers 11:30:00 11:30:00 ALISON ity o f [facility] 2021-08-01 2021-08-01 Travel 1.2.840.1 1.2.126.656 [id number] Univers 00:00:00 00:00:00 33193.1.1 350.1.13.10 ity of 3.104.2.7 4.2.7.3.698 [place] .3.605402 084.8 Medica l .8 [place] 2021-07-23 2021-07-23 Refill Kemp, 1.2.840.7 [id number] Univers 00:00:00 00:00:00 Alison 52767.1.1 ity of Bey 3.104.2.7 [place] .3.112620 Medica l .8 [facility] 2021-07-21 2021-07-21 Orders Doctor LORENZO 1.2.840.114 [id number] Univers 00:00:00 00:00:00 Only Unassigned, ABDULAZIZ 350.1.13.10 ity of [facility] 4.2.7.2.686 Mariano as [phone] [address] 2021-07-14 2021-07-14 Telephone Kemp, 1.2.840.3 [id number] Univers 00:00:00 00:00:00 Alison 28364.1.1 ity of Bey 3.104.2.7 [place] .3.414866 Medica l .8 [facility] 2021-07-02 2021-07-02 Orders Doctor Rich.2.840.5 [id number] Univers 00:00:00 00:00:00 Only Unassigned, 07585.1.1 ity of [place] 3.104.2.7 [place] .3.263038 Medica l .8 [facility] 2021-06-23 2021-06-23 Orders Doctor 1.2.840.8 [id number] Univers 00:00:00 00:00:00 Only Unassigned, 43532.1.1 ity of [place] 3.104.2.7 [place] .3.679287 Medica l .8 Fisher 2021-06-23 2021-06-23 Telephone Kemp, 1.2.840.6 [id number] Univers 00:00:00 00:00:00 Alison 49361.1.1 ity of Bey 3.104.2.7 [place] .3.238166 Medica l .8 Fisher 2021-06-22 2021-06-22 Telephone Kemp, 1.2.840.1 [id number] Univers 00:00:00 00:00:00 Alison 94028.1.1 ity of Bey 3.104.2.7 [place] .3.123821 Medica l .8 Fisher 2021-05-18 2021-05-18 Outpatient STELLA LORENZ [facility] [id number] Univers 13:45:00 14:07:30 STELLA PEPE ity of [facility] 2021-05-18 2021-05-18 Orders Doctor 1.2.840.8 [id number] Univers 00:00:00 00:00:00 Only Unassigned, 20991.1.1 ity of [place] 3.104.2.7 [place] .3.422291 Medica l .8 Fisher 2021-04-27 2021-04-27 Outpatient STELLA LORENZ [facility] [id number] Univers 15:15:00 15:15:00 STELLA PEPE ity of [facility] 2021-04-27 2021-04-27 Travel 1.2.840.1 1.2.664.705 [id number] Univers 00:00:00 00:00:00 30955.1.1 350.1.13.10 ity of 3.104.2.7 4.2.7.3.698 [place] .3.749069 084.8 Medica l .8 [place] 2021-04-25 2021-04-25 Orders Doctor 1.2.840.0 [id number] Univers 00:00:00 00:00:00 Only Unassigned, 37749.1.1 ity of [place] 3.104.2.7 [place] .3.596858 Medica l .8 Fisher 2021-03-28 2021-03-28 Refill Kemp, 1.2.840.1 [id number] Univers 00:00:00 00:00:00 Alison 79606.1.1 ity of Bey 3.104.2.7 [place] .3.986202 Medica l .8 [facility] 2021-03-15 2021-03-15 Outpatient R CLEMENTE, [facility] [id number] Univers 11:00:00 11:00:00 ALISON jennifer o [facility] 2021-01-24 2021-01-24 Outpatient R SELF, [facility] [id number] Univers 15:15:00 16:57:15 BIRD rodriguez [facility] [place] [facility] 2021-01-24 2021-01-24 Outpatient R SELF, [facility] [id number] Univers 15:15:00 15:15:00 BIRD rodriguez [facility] [place] [facility] 2021-01-24 2021-01-24 Travel 1.2.840.1 1.2.183.366 [id number] Univers 00:00:00 00:00:00 83249.1.1 350.1.13.10 ity of 3.104.2.7 4.2.7.3.698 [place] .3.707414 084.8 Medica l .8 [place] 2020-10-27 2020-10-27 Outpatient R EVERARDO, [facility] [id number] Univers 16:00:00 16:00:00 JM rodriguez [facility] 2020-10-27 2020-10-27 Travel 1.2.840.1 1.2.600.487 [id number] Univers 00:00:00 00:00:00 45991.1.1 350.1.13.10 ity of 3.104.2.7 4.2.7.3.698 [place] .3.077959 084.8 Medica l .8 [facility] 2020-08-09 2020-08-09 Telephone Kemp, 1.2.840.1 [id number] Univers 00:00:00 00:00:00 Alison 45496.1.1 ity of Bey 3.104.2.7 [place] .3.899356 Medica l .8 [facility] 2020-08-03 2020-08-03 Telephone Thottempudi 1.2.840.6 [id number] Univers 00:00:00 00:00:00 , Neehjosias 13104.1.1 ity of 3.104.2.7 [place] .3.511041 Medica l .8 [facility] 2020-08-03 2020-08-03 Nurse Kemp, 1.2.840.0 [id number] Univers 00:00:00 00:00:00 Triage Alison 76733.1.1 ity of Bey 3.104.2.7 [place] .3.041065 Medica l .8 [facility] 2020-07-26 2020-07-26 Telephone [place] 1.2.840.8 [id number] Univers 00:00:00 00:00:00 , [place] 78763.1.1 ity of 3.104.2.7 [place] .3.527664 Medica l .8 [facility] 2020-07-02 2020-07-02 Outpatient R DEFILIPPIS, [facility] [id number] Univers 10:30:00 10:30:00 [facility] 2020-06-04 2020-06-04 Outpatient R DEFILIPPIS, [facility] [id number] Univers 08:15:00 08:15:00 [facility] 2020-06-04 2020-06-04 Travel 1.2.840.1 1.2.996.274 [id number] Univers 00:00:00 00:00:00 36949.1.1 350.1.13.10 ity of 3.104.2.[place].3.698 [place] .3.193142 084.8 Medica l .8 Fisher 2020-04-06 2020-04-06 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 Alison Kemp 1.2.840.1 1 [id number] Univers 15:52:29 16:20:19 Visit [facility]-Lab 02803.1.1 ity of 3.104.2.7 [place] .3.473847 Medica l .8 [facility] 2020-04-06 2020-04-06 Office Alison Kemp 1.2.840.1 [id number] Univers 15:21:08 15:51:08 Visit Garrett Parker 78515.1.1 ity of 3.104.2.7 [place] .3.852479 Medica l .8 [facility] 2020-04-06 2020-04-06 Outpatient R CLEMENTE [facility] [id number] Univers 15:30:00 15:30:00 ALISON rodriguez o f [facility] 2020-03-26 2020-03-26 Outpatient R YOUSIF, [facility] [id number] Univers 09:45:00 09:45:00 CAT rodriguez of [facility] 2020-03-26 2020-03-26 Travel 1.2.840.1 1.2.092.903 [id number] Univers 00:00:00 00:00:00 18140.1.1 350.1.13.10 ity of 3.104.2.[place].698 [place] .3.541713 084.8 Medica l .8 Fisher 2020-02-16 2020-02-16 [facility] 1.2.840.114 [id number] Univers 00:00:00 00:00:00 , [place] PRIMARY 350.1.13.10 ity of CARE 4.2.7.2.686 Rosalina CROSS [phone] [place] 092 [place] 2020-02-12 2020-02-12 Telephone Keith UNIVERSIT 1.2.840.11 [id number] Univers 00:00:00 00:00:00 , [place] HEALTH 350.1.13.10 it[place] of CL[place] [phone] [facility] [address] [place] [address] 2020-02-09 2020-02-09 Telephone Keith [facility] 1.2.840.114 [id number] Univers 00:00:00 00:00:00 , [place] PRIMARY 350.1.13.10 [place]2.686 [place] [phone] [address] 2020-01-02 2020-01-02 Outpatient R DEFILIPPIS, [facility] [id number] Univers 09:45:00 09:45:00 CAT [facility] 2019-11-11 2019-11-11 Emergency Gr, 1.2.840.2 [id number] Univers 01:32:00 03:45:00 Bebe [place] 74751.1.1 it y of 3.104.2.7 [place] .3.793256 Medica l .8 Fisher 2019-11-11 2019-11-11 Travel 1.2.840.1 1.2.938.817 [id number] Univers 00:00:00 00:00:00 35476.1.1 350.1.13.10 ity of 3.104.2.7 4.[place].3.698 [place] .3.789287 084.8 Medica l .8 Fisher 2019-11-07 2019-11-07 Outpatient R DEFILIPPIS, [facility] [id number] Univers 09:15:00 09:15:00 CAT [facility] 2019-11-07 2019-11-07 Travel 1.2.840.1 1.2.815.287 [id number] Univers 00:00:00 00:00:00 83601.1.1 350.1.13.10 ity of 3.104.2.7 4.[place].7.3.698 [place] .3.328892 084.8 Medica l .8 [place] 2019-11-05 2019-11-05 Refill Greg, 1.2.840.5 [id number] Univers 00:00:00 00:00:00 Real 45811.1.1 ity of 3.104.2.7 [place] .3.786071 Medica l .8 Fisher 2019-11-05 2019-11-05 Telephone Keith 1.2.840.5 [id number] Univers 00:00:00 00:00:00 , [place] 44647.1.1 ity of 3.104.2.7 [place] .3.041509 Medica l .8 Fisher 2019-10-10 2019-10-10 Outpatient R DEFILIPPIS, [facility] [id number] Univers 09:15:00 09:15:00 [facility] 2019-09-16 2019-09-22 Office KempAlison carreno 1.2.840.1 [id number] Univers 15:09:18 11:35:09 Visit Garrett aPrker 90043.1.1 ity of 3.104.2.7 [place] .3.344978 Medica l .8 Fisher 2019-09-16 2019-09-16 Outpatient R [facility] [id number] Univers 15:00:00 15:00:00 ity of [facility] 2019-09-12 2019-09-12 Outpatient R DEFILIPPIS, [facility] [id number] Univers 09:15:00 09:15:00 [facility] 2019-09-12 2019-09-12 Travel 1.2.840.1 1.2.255.890 [id number] Univers 00:00:00 00:00:00 43764.1.1 350.1.13.10 ity of 3.104.2.7 4.[place].7.3.698 [place] .3.838687 084.8 Medica l .8 Fisher 2019-08-21 2019-08-21 Telephone Clemente 1.2.840.5 [id number] Univers 00:00:00 00:00:00 Alison 18757.1.1 ity of Bey 3.104.2.7 [place] .3.246055 Medica l .8 Branch 2019-08-15 2019-08-16 Emergency [place] 1.2.840.8 [id number] Univers 07:40:53 17:00:00 [facility] her[facility]na 61943.1.1 ity of 3.104.2.7 [place] .3.608684 Medica l .8 Fisher 2019-08-15 2019-08-15 Nurse Louise, 1.2.840.4 [id number] Univers 00:00:00 00:00:00 Triage Nuha Edward 91924.1.1 ity of 3.104.2.7 [place] .3.969046 Medica l .8 Branch 2019-08-15 2019-08-15 Travel 1.2.840.1 1.2.005.216 [id number] Univers 00:00:00 00:00:00 71795.1.1 350.1.13.10 ity of 3.104.2.7 4.[place].7.3.698 [place] .3.877544 084.8 Medica l .8 [place] 2019-08-05 2019-08-05 Orders Doctor 1.2.840.9 [id number] Univers 00:00:00 00:00:00 Only Unassigned, 22439.1.1 ity of [place] 3.104.2.7 [place] .3.162580 Medica l .8 [place] 2019-08-04 2019-08-04 [facility] [id number] Common 08:00:00 08:00:00 [facility] 2019-07-10 2019-07-10 [facility] [id number] Common 15:26:00 15:26:00 [facility] 2019-07-09 2019-07-09 Transition Anderson, 1.2.840.2 [id number] Univers 00:00:00 00:00:00 of Care Luann Hare 75553.1.1 ity of 3.104.2.7 [place] .3.796660 Medica l .8 Branch 2019-07-06 2019-07-08 Inpatient X OLIVIA, [facility] NINA [id number] Univers 14:24:01 11:45:00 CODIE ity of [facility] 2019-07-06 2019-07-08 [facility] Reji Churchill 1.2.840.1 [id number] Univers 14:24:01 11:45:00 Encounter Codie Waldrop 17559.1.1 ity of 3.104.2.7 [place] .3.838348 Medica l .8 Branch 2019-07-08 2019-07-08 Telephone Kemp, 1.2.840.0 [id number] Univers 00:00:00 00:00:00 Alison 37119.1.1 ity of Bey 3.104.2.7 [place] .3.860604 Medica l .8 Branch 2019-07-07 2019-07-07 Surgery Anesthesiol 1.2.840.9 [id number] Univers 13:00:00 14:00:00 ogy 50957.1.1 ity of 3.104.2.7 [place] .3.307906 Medica l .8 Branch 2019-07-07 2019-07-07 Anesthesia Ki Petersen 1.2.840 .7 [id number] Univers 11:55:00 13:33:00 Event Briana Hernandez 16569.1.1 ity of 3.104.2.7 [place] .3.754416 Medica l .8 Branch 2019-07-06 2019-07-06 Travel 1.2.840.1 1.2.918.317 [id number] Univers 00:00:00 00:00:00 98732.1.1 350.1.13.10 ity of 3.104.2.7 4.[place].7.3.698 [place] .3.196771 084.8 Medica l .8 [place] 2019-06-06 2019-06-06 Outpatient R YOUSIF, [facility] [id number] Univers 08:45:00 08:45:00 CAT ity of [facility] 2019-06-02 2019-06-02 [facility] [id number] Common 14:08:00 14:08:00 [facility] [address] [facility] 2019-06-02 2019-06-02 [facility] [id number] Common 11:00:00 11:00:00 [facility] [address] [facility] 2019-06-01 2019-06-01 Nurse Anton, 1.2.840.3 [id number] Univers 00:00:00 00:00:00 Triage Liza S 48621.1.1 it y of 3.104.2.[address] [facility], [id number] Medica l .8 [place] 2019-05-09 2019-05-09 Outpatient Mayur DODD, [facility] [id number] Univers 11:15:00 11:15:00 [facility] 2019-04-13 2019-04-13 [facility] [id number] Common 13:29:00 13:29:00 [facility] [address] [facility] 2019-04-09 2019-04-09 [facility] [id number] Common 14:00:00 14:00:00 [facility] [address] [facility] 2019-03-14 2019-03-14 Orders Doctor 1.2.840.8 [id number] Univers 00:00:00 00:00:00 Only Unassigned, 45198.1.1 ity of [place] 3.104.2.7 [place] .3.002061 Medica l .8 Fisher 2019-02-12 2019-02-12 Orders Doctor 1.2.840.9 [id number] Univers 00:00:00 00:00:00 Only Unassigned, 52022.1.1 ity of [place] 3.104.2.7 [place] .3.537718 Medica l .8 [place] 2019-01-01 2019-01-01 Orders Doctor 1.2.840.2 [id number] Univers 00:00:00 00:00:00 Only Unassigned, 22597.1.1 ity of [place] 3.104.2.7 [place] .3.255814 Medica l .8 Branch 2018-12-20 2018-12-20 Orders Doctor 1.2.840.1 [id number] Univers 00:00:00 00:00:00 Only Unassigned, 39254.1.1 ity of [place] 3.104.2.7 [place] .3.399407 Medica l .8 Branch 2018-12-09 2018-12-09 [facility] [id number] Common 08:05:00 08:05:00 [facility] 2018-12-06 2018-12-06 [facility] [id number] Common 13:00:00 13:00:00 [facility] 2018-11-22 2018-11-22 Orders Doctor 1.2.840.5 [id number] Univers 00:00:00 00:00:00 Only Unassigned, 88569.1.1 ity of [place] 3.104.2.7 [place] .3.426583 Medica l .8 Branch 2018-11-14 2018-11-14 [facility] [id number] Common 15:00:00 15:00:00 [facility] 2018-10-17 2018-10-17 Orders Doctor 1.2.840.6 [id number] Univers 00:00:00 00:00:00 Only Unassigned, 48737.1.1 ity of [place] 3.104.2.7 [place] .3.291262 Medica l .8 Branch 2018-08-16 2018-08-16 Orders Doctor 1.2.840.6 [id number] Univers 00:00:00 00:00:00 Only Unassigned, 02252.1.1 ity of [place] 3.104.2.7 [place] .3.052242 Medica l .8 Branch 2018-06-28 2018-06-28 [facility] [id number] Common 08:00:00 08:00:[address] [facility] 2018-06-05 2018-06-05 [facility] [id number] Common 13:40:00 13:40:[address] [facility] 2018-05-24 2018-05-24 [facility] [id number] Common 03:23:00 03:23:[address] [facility] 2018-05-23 2018-05-23 [facility] [id number] Common 08:30:00 08:30:[address] [facility] 2018-05-02 2018-05-02 [facility] [id number] Common 23:45:00 23:45:[address] [facility] 2018-05-02 2018-05-02 [facility] [id number] Common 08:30:00 08:30:[address] [facility] Results This patient has no known results.
[2022-05-01] MEDS ORDERED: LEVETIRACETAM 500 MG/5 ML VIAL IV ONE (08:53)
[2022-05-01] MEDS ORDERED: LORazepam 2 MG/ML VIAL ONE (08:53)
[2022-05-01] MEDS ORDERED: NA CHLORIDE 0.9% 0 ML ONE (08:54)
[2022-05-01] MEDS ORDERED: NA CHLORIDE 0.9% 100 ML ONE (08:54)
--- NOTE | 2022-05-01 10:44 | EDPHYS ---
Physician Documentation [facility] Name: Cristina Valles Age: 22 yrs Sex: Female : 2000 Arrival Date: 05/01/2022 Time: 08:36 Bed 7 Private MD: RICHY Physician Bharath Hernández HPI: 05/01 08:43 This 22 yrs old Female presents to ER via EMS with complaints of Seizure. marshal 08:43 The patient presents after having a single isolated seizure, that lasted 60 minute(s). marshal Character of seizure(s): Loss of consciousness: the patient experienced loss of consciousness, Motor activity: generalized, Incontinence: none, Apnea: the patient did not experience apnea. Seizure onset: this morning. Context: the seizure(s) was witnessed, by family, mother. Seizure Hx: Last seizure: The patient's last seizure was approximately 1 day(s) ago. Associated injury: The patient did not suffer any apparent associated injury. EMS care: none. The patient has experienced similar episodes in the past, several times. 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 - Social history:: Smoking status: Patient denies any tobacco usage or history of. ROS: 08:45 Constitutional: Negative for fever, chills, and weight loss, Eyes: Negative for injury, marshal pain, redness, and discharge, ENT: Negative for injury, pain, and discharge, Neck: Negative for injury, pain, and swelling, Cardiovascular: Negative for chest pain, palpitations, and edema, Respiratory: Negative for shortness of breath, cough, wheezing, and pleuritic chest pain, Abdomen/GI: Negative for abdominal pain, nausea, vomiting, diarrhea, and constipation, Back: Negative for injury and pain, : Negative for injury, bleeding, discharge, and swelling, MS/Extremity: Negative for injury and deformity, Neuro: Negative for headache, weakness, numbness, tingling, and seizure, Psych: Negative for depression, anxiety, suicide ideation, homicidal ideation, and hallucinations, Allergy/Immunology: Negative for hives, rash, and allergies, Endocrine: Negative for neck swelling, polydipsia, polyuria, polyphagia, and marked weight changes, Hematologic/Lymphatic: Negative for swollen nodes, abnormal bleeding, and unusual bruising. 08:45 Skin: Negative for injury, rash, and discoloration. 08:45 Neuro: Positive for altered mental status, post ictal. Exam: 08:45 Constitutional: This is a well developed, well nourished patient who is awake, alert, marshal and in no acute distress. Head/Face: Normocephalic, atraumatic. Eyes: Pupils equal round and reactive to light, extra-ocular motions intact. Lids and lashes normal. Conjunctiva and sclera are non-icteric and not injected. Cornea within normal limits. Periorbital areas with no swelling, redness, or edema. ENT: Nares patent. No nasal discharge, no septal abnormalities noted. Tympanic membranes are normal and external auditory canals are clear. Oropharynx with no redness, swelling, or masses, exudates, or evidence of obstruction, uvula midline. Mucous membranes moist. Neck: Trachea midline, no thyromegaly or masses palpated, and no cervical lymphadenopathy. Supple, full range of motion without nuchal rigidity, or vertebral point tenderness. No Meningismus. Chest/axilla: Normal chest wall appearance and motion. Nontender with no deformity. No lesions are appreciated. Cardiovascular: Regular rate and rhythm with a normal S1 and S2. No gallops, murmurs, or rubs. Normal PMI, no JVD. No pulse deficits. Respiratory: Lungs have equal breath sounds bilaterally, clear to auscultation and percussion. No rales, rhonchi or wheezes noted. No increased work of breathing, no retractions or nasal flaring. Abdomen/GI: Soft, non-tender, with normal bowel sounds. No distension or tympany. No guarding or rebound. No evidence of tenderness throughout. Back: No spinal tenderness. No costovertebral tenderness. Full range of motion. Pelvic Exam: Normal external genitalia. Speculum exam with closed cervical os, no discharge or bleeding noted. Bimanual exam with normal adnexa, no adnexal or cervical motion tenderness. Normal uterus. Skin: Warm, dry with normal turgor. Normal color with no rashes, no lesions, and no evidence of cellulitis. Psych: Awake, alert, with orientation to person, place and time. Behavior, mood, and affect are within normal limits. 08:45 Neuro: Orientation: unable to test, Mentation: confused, Memory: unable to test, Cranial nerves: Cerebellar function: Motor: moves all fours, Sensation: is normal, Gait: not tested. Babinski testing is normal. Vital Signs: 08:40 Pulse Ox 98% on R/A; Weight 82.55 kg (M); Height 5 ft. 0 in. (152.40 cm) (R); Pain 0/10;kc6 08:40 Body Mass Index 35.54 (82.55 kg, 152.40 cm) kc6 [place] Coma Score: 08:42 Eye Response: spontaneous(4). Verbal Response: oriented(5). Motor Response: obeys kc6 commands(6). Total: 15. MDM: 08:37 Patient medically screened. [facility] 08:49 Differential diagnosis: cerebral vascular accident, drug overdose, cardiac arrhythmia, marshal seizure, TIA. Data reviewed: vital signs, nurses notes, lab test result(s), EKG. Independent interpretation of the following test(s) in the Emergency Department EKG: See my EKG interpretation above. Test considered but Not performed: CT: ct brain. Care significantly affected by the following chronic conditions: seizures and schizphrenia. 09:54 Consideration of Admission/Observation Escalation of care including [facility] admission/observation considered. I considered the following discharge prescriptions or medication management in the emergency department Medications were administered in the Emergency Department. See MAR. Historians other than the Patient: Family Member: mother. 05/01 08:42 Order name: IV Saline Lock; Complete Time: 09:40 [facility] 05/01 08:42 Order name: Labs collected and sent; Complete Time: 09:40 [facility] 05/01 08:42 Order name: Suicide Precautions; Complete Time: 08:45 [facility] 05/01 08:42 Order name: Suicide Screening ([place]); Complete Time: 08:45 [facility] 05/01 08:42 Order name: Seizure Precautions; Complete Time: 08:45 [facility] Administered Medications: 08:58 Drug: Ativan (LORazepam) 2 mg Route: IM; Site: left vastus lateralis; 6 10:58 Follow up: Response: No adverse reaction ap3 09:30 Drug: Keppra (levETIRAcetam) 1000 mg Route: IV; Rate: per protocol; Site: left forearm; 6 10:58 Follow up: IV Status: Infusion continued ap3 10:50 Not Given (patient removed her IV): NS 0.9% 1000 ml IV at 1 bolus Per protocol; 1000 mL ap3 bolus Disposition Summary: 05/01/22 10:44 Discharge Ordered Location: Home marshal Problem: new marshal Symptoms: have improved marshal Condition: Stable marshal Diagnosis - Epileptic seizures related to external causes, not intractable marshal - Schizophrenia, unspecified marshal Followup: marshal - With: Private Physician - When: 2 - 3 days - Reason: Recheck today's complaints, Continuance of care, Re-evaluation by your physician Followup: marshal - With: - When: 2 - 3 days - Reason: Recheck today's complaints, Continuance of care, Re-evaluation by your physician Discharge Instructions: - Discharge Summary Sheet marshal - Schizophrenia marshal - Seizure, Adult marshal - Seizure, Adult, [id number] marshal - Supporting Someone With Schizophrenia marshal - Managing Schizophrenia marshal Forms: - Medication Reconciliation Form marshal - Thank You Letter marshal - Antibiotic Education marshal - Prescription Opioid Use marshal Prescriptions: - Keppra 500 mg Oral Tablet - take 1 tablet by ORAL route every 12 hours; 20 tablet; Refills: 0, Product marshal Selection Permitted - Trileptal 300 mg Oral Tablet - take 2 tablet by ORAL route every 12 hours; 40 tablet; Refills: 0, Product marshal Selection Permitted - Zyprexa 10 mg Oral Tablet - take 0.5 tablet by ORAL route once daily; 20 tablet; Refills: 0, Product marshal Selection Permitted Signatures: Dispatcher [employer] EDMS Brianne Cooper Corey, MD MD cha Campbell, Kaitlyn, RN RN kc6 Lynne Vasquez RN ap3 Corrections: (The following items were deleted from the chart) 08:44 08:42 Social history: Smoking status: unknown [facility] 10:50 09:53 Labs - recollect needed ordered. ap3 10:51 08:42 EKG - Nurse/Tech ordered. [facility] ap3 10:51 08:42 Urine Dipstick-Ancillary ordered. marshal ap3 10:51 08:42 Urine Test ordered. marshal ap3
--- NOTE | 2022-05-01 10:44 | ER ---
Nurse's Notes [facility] Name: Cristina Valles Age: 22 yrs Sex: Female : 2000 Arrival Date: 05/01/2022 Time: 08:36 Bed 7 Private MD: Diagnosis: Epileptic seizures related to external causes, not intractable;Schizophrenia, unspecified Presentation: 05/01 08:40 Chief complaint: EMS states: client had a seizure yesterday and this morning. the one kc6 this morning lasted less than a minute. mom stated she had a recent medication change. Coronavirus screen: Vaccine status: Patient reports receiving the 2nd dose of the covid vaccine. At this time, the client does not indicate any symptoms associated with coronavirus-19. Ebola Screen: No symptoms or risks identified at this time. Initial Sepsis Screen: Does the patient meet any 2 criteria? No. Patient's initial sepsis screen is negative. Does the patient have a suspected source of infection? No. Patient's initial sepsis screen is negative. Risk Assessment: Do you want to hurt yourself or someone else? Patient reports no desire to harm self or others. Onset of symptoms was May 01, 2022. 08:40 Method Of Arrival: EMS: [facility] kc6 08:40 Acuity: PO 2 kc6 Triage Assessment: 08:42 General: Appears in no apparent distress. comfortable, Behavior is cooperative, kc6 appropriate for age, agitated. Pain: Unable to use pain scale. Does not appear to understand pain scale. FLACC scale score is 0 out of 10. EENT: No signs and/or symptoms were reported regarding the EENT system. Neuro: Maurer Agitation-Sedation Scale (RASS): 0 - Alert and Calm Level of Consciousness is awake, alert, Oriented to person, Appropriate for age. Cardiovascular: Capillary refill < 3 seconds. Respiratory: Airway is patent Trachea midline Respiratory effort is even, unlabored, Respiratory pattern is regular, symmetrical. GI: No signs and/or symptoms were reported involving the gastrointestinal system. : No signs and/or symptoms were reported regarding the genitourinary system. Derm: No signs and/or symptoms reported regarding the dermatologic system. Skin is intact, Skin is pink, warm \T\ dry. Musculoskeletal: No signs and/or symptoms reported regarding the musculoskeletal system. Circulation, motion, and sensation intact. Capillary refill < 3 seconds, Range of motion: intact in all extremities. 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 - Social history:: Smoking status: Patient denies any tobacco usage or history of. Screenin:01 [facility] ED Fall Risk Assessment (Adult) History of falling in the last 3 months, kc6 including since admission No falls in past 3 months (0 pts) Confusion or Disorientation No (0 pts) Intoxicated or Sedated No (0 pts) Impaired Gait No (0 pts) Mobility Assist Device Used No (0 pt) Altered Elimination No (0 pt) Score/Fall Risk Level 0 - 2 = Low Risk Oriented to surroundings, Maintained a safe environment, Educated pt \T\ family on fall prevention, incl call for assistance when getting out of bed, Assessed \T\ reinforced patient's understanding of fall precautions, Hourly rounding (assess needs \T\ fall precautionary measures) done. Abuse screen: Denies threats or abuse. Denies injuries from another. Nutritional screening: No deficits noted. Tuberculosis screening: No symptoms or risk factors identified. Assessment: 08:45 Reassessment: please see triage assessment. unable to obtain vital signs upon triage kc6 due to post ictal status, client is agitated. EKG, IV Start and Labs on hold at this time. Dr. Hernández notified. Vital Signs: 08:40 Pulse Ox 98% on R/A; Weight 82.55 kg (M); Height 5 ft. 0 in. (152.40 cm) (R); Pain 0/10;kc6 08:40 Body Mass Index 35.54 (82.55 kg, 152.40 cm) kc6 [place] Coma Score: 08:42 Eye Response: spontaneous(4). Verbal Response: oriented(5). Motor Response: obeys kc6 commands(6). Total: 15. ED Course: 08:36 Patient arrived in ED. marshal 08:36 Bharath Hernández MD is Attending Physician. marshal 08:40 Veronika Rayo, RN is Primary Nurse. kc6 08:42 Triage completed. kc6 08:42 Arm band placed on. kc6 09:01 Patient has correct armband on for positive identification. Bed in low position. Call kc6 light in reach. Side rails up X2. Adult w/ patient. Seizure precautions initiated. 10:15 IV discontinued, patient DC'd her own IV. catheter intact. Bleeding controlled. ap3 10:44 Grover Jason MD is Referral Physician. marshal 10:56 No provider procedures requiring assistance completed. ap3 Administered Medications: 08:58 Drug: Ativan (LORazepam) 2 mg Route: IM; Site: left vastus lateralis; 6 10:58 Follow up: Response: No adverse reaction ap3 09:30 Drug: Keppra (levETIRAcetam) 1000 mg Route: IV; Rate: per protocol; Site: left forearm; 6 10:58 Follow up: IV Status: Infusion continued ap3 10:50 Not Given (patient removed her IV): NS 0.9% 1000 ml IV at 1 bolus Per protocol; 1000 mL ap3 bolus Medication: 10:56 VIS not applicable for this client. ap3 Outcome: 10:44 Discharge ordered by . marshal 10:57 Condition: stable ap3 10:57 Discharge instructions given to family, Instructed on discharge instructions, follow up and referral plans. medication usage, Demonstrated understanding of instructions, follow-up care, medications, Prescriptions given X 3. 11:41 Discharged to home via wheelchair, with family. ap3 11:41 Patient left the ED. ap3 Signatures: Bharath Hernández MD MD cha Prokisch, Amanda RN RN ap3 Vernoika Rayo, RN RN 6 Corrections: (The following items were deleted from the chart) 08:44 08:42 Social history: Smoking status: unknown [place] [id number] 09:05 08:45 Reassessment: please see triage assessment. unable to obtain vital signs upon [facility] triage due to post ictal status, client is agitated. EKG, IV Start and Labs on hold at this time. kc6
[2022-05-01 12:38] VITALS: BP 136/89; TEMP 97.9; O2SAT 100
== END 2022-05-01 11:41 | disposition home or self-care (01) ==
LOC: ER 08:34
DX: G40.509 Epileptic seizures related to external causes, not intractable, without status epilepticus (principal); F20.9 Schizophrenia, unspecified; F84.0 Autistic disorder
CPT/HCPCS: 96365; 96372; 99283; J1953; J7030